=== PATIENT | female | born 1940 | race Caucasian/White ===

== ENCOUNTER 2024-04-19 13:50 | Inpatient (IN) | payer MEDICARE, OTHER ==
[~2024-04-19] VITALS: Ht 170.2 cm; Wt 105.7 kg
[2024-04-19] MEDS: IV NORMAL SALINE 1000 ML BAG IV ONE (14:15)
[2024-04-19] MEDS: PIPERACILLIN SODIUM/TAZOBACTAM 3.375 G in IV DEXTROSE 5% 50 ML IV ONE (14:15)
[2024-04-19 14:41] LABS: BASOPHILS % (AUTO) 0.3 % (0.0-2.0); EOSINOPHILS # (AUTO) 0.3 K/uL (0.0-0.7); EOSINOPHILS % (AUTO) 3.3 % (0.0-7.0); HEMATOCRIT 34.7 % (31.2-41.9); HEMOGLOBIN 11.3 g/dL (10.9-14.3); LYMPHOCYTES # (AUTO) 1.5 K/uL (0.8-4.8); LYMPHOCYTES % (AUTO) 14.9 % (20.5-51.5); MEAN CORPUSCULAR HEMOGLOBIN 29.7 uug (24.7-32.8); MEAN CORPUSCULAR HGB CONC 33 g/dL (32.3-35.6); MEAN CORPUSCULAR VOLUME 91.2 fL (75.5-95.3); MONOCYTES % (AUTO) 10.1 % (0.0-11.0); NEUTROPHILS # (AUTO) 7.1 K/uL (1.8-8.9); NEUTROPHILS % (AUTO) 71.4 % (38.5-71.5); PLATELET COUNT (AUTO) 229 K/uL (179-408); RED CELL DISTRIBUTION WIDTH 14.1 % (12.3-17.7)
[2024-04-19] MEDS: VANCOMYCIN IV 1,000 MG in IV DEXTROSE 5% 250 ML IV ONE (14:45)
[2024-04-19 14:46] LABS: DIFFERENTIAL COMMENT 1
[2024-04-19 14:49] LABS: CALCIUM 8.5 mg/dL (8.5-10.1); CARBON DIOXIDE 23 mmol/L (21-32); CHLORIDE 100 mmol/L (98-107); CREATININE 2.1 mg/dL (0.6-1.3); GLUCOSE 52 mg/dL (74-106); POTASSIUM 3.3 mmol/L (3.5-5.1); SODIUM SERUM 136 mmol/L (136-145); UREA NITROGEN, BLOOD 71 mg/dL (7-18)
[2024-04-19] MEDS ORDERED: FURO20TA4 PO (14:49)
[2024-04-19] MEDS ORDERED: SITA50TA PO (14:49)
[2024-04-19] MEDS ORDERED: LOSA50TA39 PO (14:49)
[2024-04-19] MEDS ORDERED: OMEG10006 PO (14:49)
[2024-04-19] MEDS ORDERED: PRAV10TA40 PO (14:49)
[2024-04-19] MEDS ORDERED: INSU100V37 SQ (14:49)
[2024-04-19] MEDS ORDERED: POLY30DR OP (14:49)
[2024-04-19] MEDS ORDERED: FLUT16SP BNOSTRILS (14:49)
[2024-04-19] MEDS ORDERED: DEXLANSOPRAZOLE PO (14:49)
[2024-04-19] MEDS ORDERED: CHOL10005 PO (14:49)
[2024-04-19] MEDS ORDERED: METO25TA6 PO (14:49)
[2024-04-19] MEDS ORDERED: SOLI5TAB2 PO (14:49)
[2024-04-19] MEDS ORDERED: INSU100C4 SQ (14:49)
[2024-04-19] MEDS ORDERED: GLIP5TAB13 PO (14:49)
[2024-04-19] MEDS ORDERED: GUAI400T61 PO (14:49)
[2024-04-19] MEDS ORDERED: ROPI0.255 PO (14:49)
[2024-04-19] MEDS ORDERED: MAGN250T10 PO (14:49)
[2024-04-19] MEDS ORDERED: ASPI81TA31 PO (14:49)
[2024-04-19 15:02] LABS: ALANINE AMINOTRANSFERASE 23 U/L (14-59); ALKALINE PHOSPHATASE 154 U/L (50-136); ASPARTATE AMINOTRANSFERASE 23 U/L (15-37); BILIRUBIN,DIRECT 0.2 mg/dL (0.0-0.2); BILIRUBIN,TOTAL 0.5 mg/dL (0.2-1.0); NT-PRO BNP 605 pg/mL (0-125); TOTAL PROTEIN, SERUM 7.1 g/dL (6.4-8.2)
[2024-04-19 15:06] LABS: LACTIC ACID 2.8 mmol/L (0.4-2.0)
[2024-04-19] MEDS ORDERED: VANCOMYCIN IV 200 ML ONE (15:38)
[2024-04-19] MEDS ORDERED: PIPERACILLIN SODIUM/TAZO 3.375 GM VIAL ONE (15:38)
[2024-04-19] MEDS ORDERED: HEPARIN/D5W DRIP 500 ML IV PRN (17:00)
[2024-04-19] MEDS: INSULIN GLARGINE,HUM 300 UNITS/3 ML CARTRIDGE SQ STA (18:25)
[2024-04-19] MEDS ORDERED: INSULIN GLARGINE,HUM 300 UNITS/3 ML CARTRIDGE SQ ONE (20:25)
[2024-04-19 22:20] VITALS: BP 104/38; TEMP 98; O2SAT 93
[2024-04-19] MEDS ORDERED: DEXTROSE 50% 50 ML DISP.SYRIN IV PRN (22:45)
[2024-04-19] MEDS ORDERED: ONDANSETRON 4 MG/2 ML VIAL IV PRN (22:45)
[2024-04-19] MEDS: BLOOD SUGAR DIAGNOSTIC 1 EACH STRIP VI SCH (22:45)
[2024-04-19] MEDS: IV LACTATED RINGERS SOLUTION 1,000 ML IV SCH (22:45)
[2024-04-20] MEDS: ENOXAPARIN SODIUM 40 MG/0.4 ML DISP.SYRIN SQ SCH (05:59)
[2024-04-20] MEDS ORDERED: IV LACTATED RINGERS SOLUTION 1,000 ML IV PRN (06:33)
[2024-04-20] MEDS: BLOOD SUGAR DIAGNOSTIC 1 EACH STRIP VI SCH (06:36)
[2024-04-20 06:45] LABS: BASOPHILS % (AUTO) 0.3 % (0.0-2.0); EOSINOPHILS # (AUTO) 0.4 K/uL (0.0-0.7); EOSINOPHILS % (AUTO) 5.3 % (0.0-7.0); HEMATOCRIT 33.5 % (31.2-41.9); HEMOGLOBIN 11.2 g/dL (10.9-14.3); LYMPHOCYTES # (AUTO) 1.8 K/uL (0.8-4.8); LYMPHOCYTES % (AUTO) 23.8 % (20.5-51.5); MEAN CORPUSCULAR HEMOGLOBIN 30.3 uug (24.7-32.8); MEAN CORPUSCULAR HGB CONC 33 g/dL (32.3-35.6); MEAN CORPUSCULAR VOLUME 90.8 fL (75.5-95.3); MONOCYTES # (AUTO) 0.7 K/uL (0.1-1.30); MONOCYTES % (AUTO) 8.8 % (0.0-11.0); NEUTROPHILS # (AUTO) 4.6 K/uL (1.8-8.9); NEUTROPHILS % (AUTO) 61.8 % (38.5-71.5); PLATELET COUNT (AUTO) 228 K/uL (179-408); RED BLOOD CELL COUNT(AUTO) 3.69 MIL/uL (3.63-4.92); RED CELL DISTRIBUTION WIDTH 14.3 % (12.3-17.7); WHITE BLOOD COUNT (AUTO) 7.4 K/uL (3.8-11.8)
[2024-04-20 06:52] LABS: DIFFERENTIAL COMMENT 1
[2024-04-20 07:03] VITALS: BP 112/45; TEMP 98.2; O2SAT 96
[2024-04-20 07:21] LABS: CARBON DIOXIDE 20 mmol/L (21-32); CHLORIDE 107 mmol/L (98-107); CREATININE 1.8 mg/dL (0.6-1.3); GLUCOSE 165 mg/dL (74-106); MAGNESIUM 2.2 mg/dL (1.8-2.4); POTASSIUM 4.1 mmol/L (3.5-5.1); SODIUM SERUM 137 mmol/L (136-145); UREA NITROGEN, BLOOD 65 mg/dL (7-18)
[2024-04-20 07:33] VITALS: BP 111/38; TEMP 98.2; O2SAT 94
[2024-04-20] MEDS: INSULIN REGULAR, HUMAN 1000 UNIT/10 ML VIAL SQ PRN (07:46)
[2024-04-20 07:52] LABS: CALCIUM 8.4 mg/dL (8.5-10.1)
[2024-04-20] MEDS: PANTOPRAZOLE SODIUM 40 MG VIAL IV SCH (08:25)
[2024-04-20] MEDS: VANCOMYCIN IV 1,250 MG in IV DEXTROSE 5% 250 ML IV ONE (09:10)
[2024-04-20] MEDS: CEFEPIME HCL 1 G in IV DEXTROSE 5% 50 ML IV SCH (09:10)
[2024-04-20] MEDS ORDERED: HYDR12.55 PO (09:35)
[2024-04-20] MEDS ORDERED: FURO40TA5 PO (09:35)
[2024-04-20] MEDS ORDERED: ROPI0.5T4 PO (09:35)
[2024-04-20] MEDS ORDERED: PRAV80TA21 PO (09:35)
[2024-04-20] MEDS ORDERED: METO-356 PO (09:35)
[2024-04-20] MEDS ORDERED: GLIP-19 PO (09:35)
[2024-04-20] MEDS ORDERED: MAGN400C PO (09:35)
[2024-04-20] MEDS ORDERED: DEXL60CA3 PO (09:35)
[2024-04-20] MEDS ORDERED: CHOL-35 PO (09:35)
[2024-04-20] MEDS ORDERED: INSU10VI3 SQ (09:39)
[2024-04-20] MEDS: PERMETHRIN 5% CREAM 60 GM TUBE TP ONE (10:14)
[2024-04-20] MEDS ORDERED: HOME MED MISCELLANEOUS XX SCH ×7 (10:45)
[2024-04-20 11:24] VITALS: BP 126/51; TEMP 97.7; O2SAT 95
[2024-04-20] MEDS: POLYVINYL ALCOHOL OPHT DROPS 15 ML BOTTLE EACHEYE SCH (11:32)
[2024-04-20] MEDS: FLUTICASONE PROP NASAL SPRAY 16 GM BOTTLE NS SCH (11:33)
[2024-04-20] MEDS: ASPIRIN 81 MG TAB.CHEW PO SCH (11:34)
[2024-04-20] MEDS: FUROSEMIDE 40 MG TABLET PO SCH (11:34)
[2024-04-20] MEDS: CHOLECALCIFEROL 1,000 UNIT TABLET PO SCH (11:34)
[2024-04-20 15:52] VITALS: BP 116/42; TEMP 98; O2SAT 96
[2024-04-20] MEDS: OMEGA-3 FATTY ACIDS/FISH OIL CAPSULE PO SCH (16:22)
[2024-04-20] MEDS: glipiZIDE XL 5 MG TABCR PO SCH (16:23)
[2024-04-20] MEDS: METOPROLOL SUCCINATE XL 25 MG TAB.SR.24H PO SCH (16:23)
[2024-04-20] MEDS: OXYBUTYNIN CHLORIDE 5 MG TABLET PO SCH (16:23)
[2024-04-20 20:00] VITALS: BP 139/50; TEMP 98; O2SAT 95
[2024-04-20] MEDS: ATORVASTATIN 20 MG TABLET PO SCH (20:22)
[2024-04-20] MEDS: GUAIFENESIN LA 600 MG TABLET.SA PO SCH (20:22)
[2024-04-20] MEDS: INSULIN GLARGINE,HUM 300 UNITS/3 ML CARTRIDGE SQ SCH (20:26)
[2024-04-21] VITALS: BP 117/38; TEMP 98.8; O2SAT 95
[2024-04-21 04:00] VITALS: BP 121/38; TEMP 98.8; O2SAT 95
[2024-04-21] MEDS: PANTOPRAZOLE SODIUM 40 MG TABLET.DR PO SCH (06:31)
[2024-04-21 06:42] LABS: BASOPHILS % (AUTO) 0.6 % (0.0-2.0); EOSINOPHILS # (AUTO) 0.4 K/uL (0.0-0.7); EOSINOPHILS % (AUTO) 6.1 % (0.0-7.0); HEMATOCRIT 33.1 % (31.2-41.9); HEMOGLOBIN 10.8 g/dL (10.9-14.3); LYMPHOCYTES % (AUTO) 28.9 % (20.5-51.5); MEAN CORPUSCULAR HGB CONC 33 g/dL (32.3-35.6); MEAN CORPUSCULAR VOLUME 91.6 fL (75.5-95.3); MONOCYTES # (AUTO) 0.7 K/uL (0.1-1.30); MONOCYTES % (AUTO) 10.9 % (0.0-11.0); NEUTROPHILS # (AUTO) 3.7 K/uL (1.8-8.9); NEUTROPHILS % (AUTO) 53.5 % (38.5-71.5); PLATELET COUNT (AUTO) 205 K/uL (179-408); RED BLOOD CELL COUNT(AUTO) 3.62 MIL/uL (3.63-4.92); WHITE BLOOD COUNT (AUTO) 6.9 K/uL (3.8-11.8)
[2024-04-21 07:05] LABS: CALCIUM 8.7 mg/dL (8.5-10.1); CARBON DIOXIDE 22 mmol/L (21-32); CHLORIDE 109 mmol/L (98-107); CREATININE 1.9 mg/dL (0.6-1.3); GLUCOSE 126 mg/dL (74-106); POTASSIUM 4.2 mmol/L (3.5-5.1); SODIUM SERUM 141 mmol/L (136-145); UREA NITROGEN, BLOOD 63 mg/dL (7-18)
[2024-04-21] MEDS ORDERED: INSULN ASP PRT/INSULIN ASPART 70/30 1000 UNITS/10 ML VIAL SQ SCH (07:30)
[2024-04-21 07:50] LABS: DIFFERENTIAL COMMENT 1
[2024-04-21 07:58] VITALS: BP 144/54; TEMP 98.6; O2SAT 99
[2024-04-21] MEDS: HUM INSULIN NPH/REG INSULIN HM 70/30 1000 UNITS/10 ML VIAL SQ SCH (08:52)
[2024-04-21] MEDS: ropiniROLE 0.5 MG TABLET PO SCH (08:52)
[2024-04-21] MEDS: MAGNESIUM OXIDE 400 MG TABLET PO SCH (08:53)
[2024-04-21] MEDS: HYDROCHLOROTHIAZIDE 12.5 MG CAPSULE PO SCH (08:53)
[2024-04-21] MEDS ORDERED: SOLIFENACIN SUCCINATE 5 MG TABEC PO SCH (09:00)
[2024-04-21] MEDS: VANCOMYCIN IV 1,250 MG in IV DEXTROSE 5% 250 ML IV ONE (13:38)
[2024-04-21 14:05] LABS: *BILIRUBIN,URIN NEGATIVE (NEGATIVE); *BLOOD, URINE TRACE (NEGATIVE); *CLARITY,URINE CLEAR (CLEAR); *COLOR,URINE YELLOW (YELLOW); *KETONES,URINE NEGATIVE (NEGATIVE); *PROTEIN,URINE NEGATIVE (NEGATIVE); *UROBILINOGEN,URINE 0.2 E.U./dl (NORMAL); LEUKOCYTE ESTERASE ,URINE NEGATIVE (NEGATIVE); NITRITE, URINE NEGATIVE (NEGATIVE); UGLUCOSE NEGATIVE (NEGATIVE)
[2024-04-21 14:06] LABS: BACTERIA,URINE FEW /HPF (NONE SEEN); SQUAMOUS EPITHELIAL CELL,UR FEW /HPF (NONE SEEN); WBC,URINE 0-3 /HPF (0-3)
[2024-04-21 14:18] LABS: *CREATININE,URINE 62.1 mg/dL (30-125); *URINE TOTAL PROTEIN RANDOM 12.5 mg/dL (<150/24HR)
[2024-04-21 16:15] VITALS: BP 144/58; TEMP 98; O2SAT 97
[2024-04-21] MEDS: CLOTRIMAZOLE/BETAMET DIPROP CREAM 15 GM TUBE TOP SCH (17:43)
[2024-04-21] MEDS: MUPIROCIN 2% OINT 22 GM TUBE TP SCH (17:47)
[2024-04-21 19:00] VITALS: BP 149/54; TEMP 97.7; O2SAT 95
[2024-04-21] MEDS: ACETAMINOPHEN 325 MG TABLET PO PRN (21:12)
[2024-04-22 06:00] VITALS: BP 148/51; TEMP 98; O2SAT 95
[2024-04-22 06:51] LABS: BASOPHILS % (AUTO) 0.4 % (0.0-2.0); EOSINOPHILS # (AUTO) 0.5 K/uL (0.0-0.7); EOSINOPHILS % (AUTO) 7.5 % (0.0-7.0); HEMATOCRIT 30.7 % (31.2-41.9); HEMOGLOBIN 10.4 g/dL (10.9-14.3); LYMPHOCYTES # (AUTO) 1.8 K/uL (0.8-4.8); LYMPHOCYTES % (AUTO) 28.7 % (20.5-51.5); MEAN CORPUSCULAR HEMOGLOBIN 30.6 uug (24.7-32.8); MEAN CORPUSCULAR HGB CONC 34 g/dL (32.3-35.6); MEAN CORPUSCULAR VOLUME 90.5 fL (75.5-95.3); MONOCYTES # (AUTO) 0.8 K/uL (0.1-1.30); MONOCYTES % (AUTO) 12.2 % (0.0-11.0); NEUTROPHILS # (AUTO) 3.2 K/uL (1.8-8.9); NEUTROPHILS % (AUTO) 51.2 % (38.5-71.5); PLATELET COUNT (AUTO) 202 K/uL (179-408); RED BLOOD CELL COUNT(AUTO) 3.39 MIL/uL (3.63-4.92); RED CELL DISTRIBUTION WIDTH 13.9 % (12.3-17.7); WHITE BLOOD COUNT (AUTO) 6.2 K/uL (3.8-11.8)
[2024-04-22 07:06] LABS: DIFFERENTIAL COMMENT 1
[2024-04-22 07:14] LABS: ALANINE AMINOTRANSFERASE 44 U/L (14-59); ALBUMIN 2.3 g/dL (3.4-5.0); ALKALINE PHOSPHATASE 194 U/L (50-136); ASPARTATE AMINOTRANSFERASE 62 U/L (15-37); BILIRUBIN,TOTAL 0.5 mg/dL (0.2-1.0); CALCIUM 8.9 mg/dL (8.5-10.1); CARBON DIOXIDE 24 mmol/L (21-32); CHLORIDE 107 mmol/L (98-107); CREATINE KINASE, TOTAL 141 U/L (26-192); CREATININE 1.8 mg/dL (0.6-1.3); GLUCOSE 125 mg/dL (74-106); MAGNESIUM 1.7 mg/dL (1.8-2.4); PHOSPHOROUS 3.6 mg/dL (2.5-4.9); POTASSIUM 3.6 mmol/L (3.5-5.1); SODIUM SERUM 139 mmol/L (136-145); TOTAL PROTEIN, SERUM 6.2 g/dL (6.4-8.2); UREA NITROGEN, BLOOD 62 mg/dL (7-18); VANCOMYCIN,RANDOM 13.6 ug/mL (20.0-30.0)
[2024-04-22] MEDS ORDERED: ENOXAPARIN SODIUM 30 MG/0.3 ML DISP.SYRIN SUBCUT SCH (09:00)
[2024-04-22] MEDS: ENOXAPARIN SODIUM 40 MG/0.4 ML DISP.SYRIN SQ SCH (09:24)
[2024-04-22] MEDS: CEFEPIME HCL 2 GM in IV DEXTROSE 5% 100 ML IV SCH (10:05)
[2024-04-22] MEDS: MAGNESIUM OXIDE 400 MG TABLET PO ONE (10:37)
[2024-04-22] MEDS: VANCOMYCIN IV 1,250 MG in IV DEXTROSE 5% 250 ML IV ONE (11:02)
[2024-04-22] MEDS ORDERED: CEPH500T PO (11:07)
[2024-04-22 11:34] VITALS: BP 111/34; TEMP 97.4; O2SAT 96
[2024-04-22 15:46] VITALS: BP 120/34; TEMP 98.2; O2SAT 100
[2024-04-22 17:08] VITALS: BP 120/54
[2024-04-22] MEDS ORDERED: CLIN300C12 PO (19:06)
[2024-04-23 06:07] LABS: PTH, INTACT 20 pg/mL (15-65)
[2024-04-23 13:10] LABS: A/G RATIO 0.9 (0.7-1.7); ALBUMIN 2.5 g/dL (2.9-4.4); ALPHA-1-GLOBULIN 0.3 g/dL (0.0-0.4); ALPHA-2-GLOBULIN 0.8 g/dL (0.4-1.0); BETA GLOBULIN 1.1 g/dL (0.7-1.3); GAMMA GLOBULIN 0.7 g/dL (0.4-1.8); GLOBULIN, TOTAL 2.9 g/dL (2.2-3.9); M-SPIKE Not Observed g/dL (Not Observed)
== END 2024-04-22 19:28 | disposition home health service (06) | DRG 602 ==
LOC: ER 13:54 → TELE3 20:40 → MEDSURG3 04-21 10:00
PROVIDERS: ADMIT Nurse Practitioner Acute Care; ATTEND Nurse Practitioner Acute Care
PROC: 05HB33Z Insertion of Infusion Device into Right Basilic Vein, Percutaneous Approach (ICD-10-PCS; principal; 2024-04-20)
DX: L03.116 Cellulitis of left lower limb (principal); N17.0 Acute kidney failure with tubular necrosis; I13.0 Hypertensive heart and chronic kidney disease with heart failure and stage 1 through stage 4 chronic kidney disease, or unspecified chronic kidney disease; I50.32 Chronic diastolic (congestive) heart failure; E87.20 Acidosis, unspecified; E11.22 Type 2 diabetes mellitus with diabetic chronic kidney disease; N18.9 Chronic kidney disease, unspecified; N28.1 Cyst of kidney, acquired; E78.5 Hyperlipidemia, unspecified; H40.9 Unspecified glaucoma; R79.1 Abnormal coagulation profile; L30.9 Dermatitis, unspecified; D64.9 Anemia, unspecified; M89.8X9 Other specified disorders of bone, unspecified site; N32.81 Overactive bladder; E66.01 Morbid (severe) obesity due to excess calories; E11.40 Type 2 diabetes mellitus with diabetic neuropathy, unspecified; S80.812A Abrasion, left lower leg, initial encounter; X58.XXXA Exposure to other specified factors, initial encounter; Y92.89 Other specified places as the place of occurrence of the external cause; Z68.36 Body mass index [BMI] 36.0-36.9, adult; Z96.642 Presence of left artificial hip joint; Z79.4 Long term (current) use of insulin; Z79.84 Long term (current) use of oral hypoglycemic drugs; Z79.82 Long term (current) use of aspirin
CPT/HCPCS: 36415; 71045; 76770; 83605; 83735; 83970; 84100; 84155; 84165; 84300; 84484; 85025; 85730; 87040; 93005; 93307; A4606; A4663; G0378; J0692; J1650; J1815; J2470; J2543; J3370; J3535; J7040; J7050; J7120; J8499

== ENCOUNTER 2024-08-06 18:50 | Inpatient (IN) | payer MEDICARE, OTHER ==
[~2024-08-06] VITALS: Ht 165.1 cm; Wt 104.4 kg
[~2024-08-06 18:50] MED LIST: ASPI81TA31 PO; CHOL-35 PO; CLIN300C12 PO; DEXL60CA3 PO; FLUT16SP BNOSTRILS; FURO40TA5 PO; GLIP-19 PO; GUAI400T61 PO; HYDR12.55 PO; INSU100V37 SQ; INSU10VI3 SQ; LOSA50TA39 PO; MAGN400C PO; METO-356 PO; OMEG10006 PO; POLY30DR OP; PRAV80TA21 PO; ROPI0.5T4 PO; SITA50TA PO; SOLI5TAB2 PO
[2024-08-06] MEDS ORDERED: diphenhydrAMINE 50 MG/1 ML VIAL ONE ×2 (19:14→21:21)
[2024-08-06] MEDS ORDERED: methylPREDNISolone SOD SUCC 125 MG/2 ML VIAL IV ONE (19:15)
[2024-08-06] MEDS: diphenhydrAMINE 50 MG/1 ML VIAL IM ONE (19:18)
[2024-08-06 19:35] LABS: BASOPHILS % (AUTO) 0.1 % (0.0-2.0); EOSINOPHILS # (AUTO) 2.7 K/uL (0.0-0.7); EOSINOPHILS % (AUTO) 21.3 % (0.0-7.0); HEMATOCRIT 40.6 % (31.2-41.9); HEMOGLOBIN 13.4 g/dL (10.9-14.3); LYMPHOCYTES # (AUTO) 1.3 K/uL (0.8-4.8); LYMPHOCYTES % (AUTO) 10.8 % (20.5-51.5); MEAN CORPUSCULAR HEMOGLOBIN 29.1 uug (24.7-32.8); MEAN CORPUSCULAR HGB CONC 33 g/dL (32.3-35.6); MONOCYTES # (AUTO) 0.6 K/uL (0.1-1.30); MONOCYTES % (AUTO) 5.1 % (0.0-11.0); NEUTROPHILS # (AUTO) 7.8 K/uL (1.8-8.9); NEUTROPHILS % (AUTO) 62.7 % (38.5-71.5); PLATELET COUNT (AUTO) 218 K/uL (179-408); RED BLOOD CELL COUNT(AUTO) 4.61 MIL/uL (3.63-4.92); RED CELL DISTRIBUTION WIDTH 14.2 % (12.3-17.7); WHITE BLOOD COUNT (AUTO) 12.5 K/uL (3.8-11.8)
[2024-08-06 19:42] LABS: CALCIUM 8.2 mg/dL (8.5-10.1); CARBON DIOXIDE 25 mmol/L (21-32); CHLORIDE 91 mmol/L (98-107); CREATININE 2.1 mg/dL (0.6-1.3); GLUCOSE 400 mg/dL (74-106); SODIUM SERUM 126 mmol/L (136-145); UREA NITROGEN, BLOOD 54 mg/dL (7-18)
[2024-08-06 19:45] LABS: POTASSIUM 4.7 mmol/L (3.5-5.1)
[2024-08-06 19:46] LABS: DIFFERENTIAL COMMENT 1
[2024-08-06 19:55] LABS: ALANINE AMINOTRANSFERASE 17 U/L (14-59); ALBUMIN 2.5 g/dL (3.4-5.0); ALKALINE PHOSPHATASE 109 U/L (50-136); ASPARTATE AMINOTRANSFERASE 20 U/L (15-37); BILIRUBIN,DIRECT 0.2 mg/dL (0.0-0.2); BILIRUBIN,TOTAL 0.7 mg/dL (0.2-1.0); NT-PRO BNP 2176 pg/mL (0-125); TOTAL PROTEIN, SERUM 6.2 g/dL (6.4-8.2)
[2024-08-06] MEDS ORDERED: INSULIN REGULAR, HUMAN 1000 UNIT/10 ML VIAL SQ ONE (21:00)
[2024-08-06] MEDS ORDERED: DEXAMETHASONE SOD PHOSPHATE 4 MG INJ IM ONE (21:00)
[2024-08-06] MEDS ORDERED: methylPREDNISolone SOD SUCC 125 MG/2 ML VIAL ONE (21:21)
[2024-08-06] MEDS ORDERED: HYDROCORTISONE SOD SUCCINATE 100 MG/2 ML VIAL IV ONE (21:21)
[2024-08-06] MEDS: methylPREDNISolone SOD SUCC 125 MG/2 ML VIAL IV ONE (21:22)
[2024-08-06] MEDS: IV NORMAL SALINE 500 ML BAG IV ONE (21:22)
[2024-08-06] MEDS: diphenhydrAMINE 50 MG/1 ML VIAL IV ONE (21:22)
[2024-08-06] MEDS: HYDROCORTISONE SOD SUCCINATE 100 MG/2 ML VIAL IV ONE (21:22)
[2024-08-06] MEDS ORDERED: INSULIN NPH 1,000 UNITS/10 ML VIAL SQ ONE (21:22)
[2024-08-06] MEDS: INSULIN REGULAR, HUMAN 1000 UNIT/10 ML VIAL IV ONE (21:41)
[2024-08-06] MEDS ORDERED: POTASSIUM CHLORIDE 20 MEQ TAB.PRT.SR ONE ×2 (21:42→21:43)
[2024-08-06] MEDS: POTASSIUM CHLORIDE 20 MEQ TAB.PRT.SR PO ONE (21:44)
[2024-08-06] MEDS ORDERED: REMEDY ESSENTIAL ZINC PASTE 113 GM TP PRN (22:45)
[2024-08-06] MEDS ORDERED: ONDANSETRON 4 MG/2 ML VIAL IV PRN (22:45)
[2024-08-06] MEDS ORDERED: DEXTROSE 50% 50 ML DISP.SYRIN IV PRN (22:45)
[2024-08-06] MEDS: ENOXAPARIN SODIUM 100 MG/ML DISP.SYRIN SQ ONE (23:00)
[2024-08-06] MEDS ORDERED: ENOXAPARIN SODIUM 100 MG/ML DISP.SYRIN SQ ONE (23:16)
[2024-08-06] MEDS ORDERED: LORAZEPAM 2 MG/1 ML VIAL ONE (23:16)
[2024-08-06] MEDS: LORAZEPAM 2 MG/1 ML VIAL IV ONE (23:18)
[2024-08-06] MEDS: ENOXAPARIN SODIUM 100 MG/ML DISP.SYRIN SQ SCH (23:18)
[2024-08-06] MEDS ORDERED: LORAZEPAM 2 MG/1 ML VIAL IM PRN (23:30)
[2024-08-06 23:45] VITALS: BP 113/90; TEMP 97.4; O2SAT 96
[2024-08-07] VITALS (7 sets, daily range): BP systolic 105–143; BP diastolic 50–124; TEMP 98.6; O2SAT 93–99
[2024-08-07 05:15] LABS: EOSINOPHILS # (AUTO) 0.2 K/uL (0.0-0.7); EOSINOPHILS % (AUTO) 2.2 % (0.0-7.0); HEMATOCRIT 38.9 % (31.2-41.9); LYMPHOCYTES # (AUTO) 0.9 K/uL (0.8-4.8); LYMPHOCYTES % (AUTO) 8.5 % (20.5-51.5); MEAN CORPUSCULAR HEMOGLOBIN 29.4 uug (24.7-32.8); MEAN CORPUSCULAR HGB CONC 33 g/dL (32.3-35.6); MEAN CORPUSCULAR VOLUME 88.2 fL (75.5-95.3); MONOCYTES # (AUTO) 0.1 K/uL (0.1-1.30); MONOCYTES % (AUTO) 1.1 % (0.0-11.0); NEUTROPHILS # (AUTO) 8.9 K/uL (1.8-8.9); NEUTROPHILS % (AUTO) 88.2 % (38.5-71.5); PLATELET COUNT (AUTO) 221 K/uL (179-408); RED BLOOD CELL COUNT(AUTO) 4.42 MIL/uL (3.63-4.92); RED CELL DISTRIBUTION WIDTH 14.1 % (12.3-17.7); WHITE BLOOD COUNT (AUTO) 10.1 K/uL (3.8-11.8)
[2024-08-07 05:31] LABS: DIFFERENTIAL COMMENT 1
[2024-08-07 05:42] LABS: CALCIUM 7.9 mg/dL (8.5-10.1); CARBON DIOXIDE 22 mmol/L (21-32); CHLORIDE 94 mmol/L (98-107); CREATININE 1.9 mg/dL (0.6-1.3); GLUCOSE 357 mg/dL (74-106); MAGNESIUM 2.1 mg/dL (1.8-2.4); NT-PRO BNP 1909 pg/mL (0-125); PHOSPHOROUS 3.5 mg/dL (2.5-4.9); POTASSIUM 5.6 mmol/L (3.5-5.1); SODIUM SERUM 127 mmol/L (136-145); UREA NITROGEN, BLOOD 54 mg/dL (7-18)
[2024-08-07] MEDS: PANTOPRAZOLE SODIUM 40 MG TABLET.DR PO SCH (08:14)
[2024-08-07] MEDS: BLOOD SUGAR DIAGNOSTIC 1 EACH STRIP VI SCH ×2 (08:15→12:51)
[2024-08-07] MEDS: INSULIN REGULAR, HUMAN 1000 UNIT/10 ML VIAL SQ PRN ×2 (08:25→12:53)
[2024-08-07] MEDS ORDERED: ENOXAPARIN SODIUM 100 MG/ML DISP.SYRIN SQ SCH ×3 (09:00→21:00)
[2024-08-07] MEDS ORDERED: POLYVINYL ALCOHOL OP SCH (09:15)
[2024-08-07] MEDS ORDERED: POVIDONE OP SCH (09:15)
[2024-08-07] MEDS ORDERED: DEXTROSE 50% 50 ML DISP.SYRIN IV PRN (09:15)
[2024-08-07] MEDS: FAMOTIDINE. 20 MG/2 ML VIAL IV SCH (09:39)
[2024-08-07] MEDS: SODIUM POLYSTYRENE SULFONATE 15 G/60 ML LIQUID UDC PO ONE (09:39)
[2024-08-07] MEDS: ASPIRIN 81 MG TAB.CHEW PO SCH (09:40)
[2024-08-07] MEDS ORDERED: APIX2.5T PO (13:58)
[2024-08-07] MEDS ORDERED: FURO20TA4 PO (13:58)
[2024-08-07] MEDS ORDERED: ACET325T53 PO (14:20)
[2024-08-07] MEDS ORDERED: SAXA5TAB PO (14:20)
[2024-08-07] MEDS ORDERED: BENZ200C53 PO (14:20)
[2024-08-07] MEDS ORDERED: INSU100V7 SQ (14:20)
[2024-08-07] MEDS ORDERED: LORA-972 PO (14:20)
[2024-08-07] MEDS ORDERED: AMIN30LI2 PO (14:20)
[2024-08-07] MEDS ORDERED: NA P133E RC (14:20)
[2024-08-07] MEDS ORDERED: INSU100V SQ (14:20)
[2024-08-07] MEDS ORDERED: SPIR25TA6 PO (14:20)
[2024-08-07] MEDS ORDERED: MELA5TAB PO (14:20)
[2024-08-07] MEDS ORDERED: ACET-73 PO (14:20)
[2024-08-07] MEDS ORDERED: ROSU5TAB PO (14:20)
[2024-08-07] MEDS ORDERED: ASCO500T85 PO (14:20)
[2024-08-07] MEDS ORDERED: CARV6.252 PO (14:20)
[2024-08-07] MEDS ORDERED: BISA10SU61 RC (14:20)
[2024-08-07] MEDS ORDERED: IPRA0.2S48 NEB (14:20)
[2024-08-07] MEDS ORDERED: LIDO30AD10 TD (14:20)
[2024-08-07] MEDS ORDERED: SENN8.6T19 PO (14:20)
[2024-08-07] MEDS ORDERED: MULT-1045 PO (14:20)
[2024-08-07] MEDS ORDERED: OXYB5TAB29 PO (14:20)
[2024-08-07] MEDS ORDERED: FERR-68 PO (14:20)
[2024-08-07] MEDS ORDERED: MAGN400O6 PO (14:20)
[2024-08-07] MEDS ORDERED: ZINC50TA69 PO (14:20)
[2024-08-07] MEDS ORDERED: ALBU2.5V13 NEB (14:20)
[2024-08-07] MEDS ORDERED: [UNRECOGNIZED DRUG - CODE] TP (14:20)
[2024-08-07] MEDS: LORAZEPAM 0.5 MG TABLET PO PRN (17:06)
[2024-08-07] MEDS ORDERED: BISACODYL 10 MG SUPP.RECT RC PRN (20:45)
[2024-08-07] MEDS ORDERED: Medication Not On Formulary EA (Melatonin 10 MG) PO PRN (20:45)
[2024-08-07] MEDS ORDERED: INSULIN GLARGINE,HUM 300 UNITS/3 ML CARTRIDGE SQ ONE (20:58)
[2024-08-07] MEDS ORDERED: METOPROLOL SUCCINATE XL 25 MG TAB.SR.24H PO SCH (21:00)
[2024-08-07] MEDS: INSULIN GLARGINE,HUM 300 UNITS/3 ML CARTRIDGE SQ SCH (21:06)
[2024-08-07 21:09] LABS: CALCIUM 8.2 mg/dL (8.5-10.1); CARBON DIOXIDE 23 mmol/L (21-32); CHLORIDE 93 mmol/L (98-107); CREATININE 2.1 mg/dL (0.6-1.3); MAGNESIUM 2.1 mg/dL (1.8-2.4); PHOSPHOROUS 3.4 mg/dL (2.5-4.9); POTASSIUM 4.9 mmol/L (3.5-5.1); SODIUM SERUM 127 mmol/L (136-145); UREA NITROGEN, BLOOD 55 mg/dL (7-18); URIC ACID 10.1 mg/dL (2.6-6.0)
[2024-08-07 21:14] LABS: THYROID STIMULATING HORMONE 0.728 mIU/mL (0.358-3.740)
[2024-08-07 21:16] LABS: GLUCOSE 490 mg/dL (74-106)
[2024-08-07] MEDS: diphenhydrAMINE 50 MG/1 ML VIAL IV PRN (23:11)
[2024-08-07] MEDS: ACETAMINOPHEN 325 MG TABLET PO PRN (23:38)
[2024-08-08] VITALS: BP 121/47; O2SAT 98
[2024-08-08] MEDS: MELATONIN 3 MG TABLET PO SCH (02:20)
[2024-08-08] MEDS: MELATONIN 3 MG TABLET ONE (03:12)
[2024-08-08 03:25] VITALS: BP 138/64; TEMP 97.6; O2SAT 94
[2024-08-08 05:21] LABS: EOSINOPHILS # (AUTO) 0.4 K/uL (0.0-0.7); EOSINOPHILS % (AUTO) 3.3 % (0.0-7.0); HEMATOCRIT 34.7 % (31.2-41.9); HEMOGLOBIN 11.6 g/dL (10.9-14.3); LYMPHOCYTES # (AUTO) 1.1 K/uL (0.8-4.8); LYMPHOCYTES % (AUTO) 8.8 % (20.5-51.5); MEAN CORPUSCULAR HEMOGLOBIN 29.1 uug (24.7-32.8); MEAN CORPUSCULAR HGB CONC 34 g/dL (32.3-35.6); MEAN CORPUSCULAR VOLUME 86.8 fL (75.5-95.3); MONOCYTES # (AUTO) 0.6 K/uL (0.1-1.30); MONOCYTES % (AUTO) 4.9 % (0.0-11.0); NEUTROPHILS # (AUTO) 10.2 K/uL (1.8-8.9); PLATELET COUNT (AUTO) 225 K/uL (179-408); RED CELL DISTRIBUTION WIDTH 14.6 % (12.3-17.7); WHITE BLOOD COUNT (AUTO) 12.2 K/uL (3.8-11.8)
[2024-08-08 05:33] LABS: *BILIRUBIN,URIN NEGATIVE (NEGATIVE); *CLARITY,URINE CLEAR (CLEAR); *COLOR,URINE YELLOW (YELLOW); *KETONES,URINE NEGATIVE (NEGATIVE); *PROTEIN,URINE 1+ (NEGATIVE); *UROBILINOGEN,URINE 0.2 E.U./dl (NORMAL); LEUKOCYTE ESTERASE ,URINE NEGATIVE (NEGATIVE); NITRITE, URINE NEGATIVE (NEGATIVE); PH,URINE 5.5 (5.0-8.0)
[2024-08-08 05:39] LABS: *BLOOD, URINE TRACE (NEGATIVE); UGLUCOSE 3+ (NEGATIVE)
[2024-08-08 05:41] LABS: DIFFERENTIAL COMMENT 1
[2024-08-08 06:06] LABS: BACTERIA,URINE FEW /HPF (NONE SEEN); SQUAMOUS EPITHELIAL CELL,UR MODERATE /HPF (NONE SEEN); WBC,URINE 0-3 /HPF (0-3)
[2024-08-08 06:23] LABS: ALANINE AMINOTRANSFERASE 19 U/L (14-59); ALBUMIN 2.6 g/dL (3.4-5.0); ALKALINE PHOSPHATASE 111 U/L (50-136); ASPARTATE AMINOTRANSFERASE 16 U/L (15-37); BILIRUBIN,TOTAL 0.5 mg/dL (0.2-1.0); CALCIUM 8.2 mg/dL (8.5-10.1); CARBON DIOXIDE 26 mmol/L (21-32); CHLORIDE 98 mmol/L (98-107); CREATINE KINASE, TOTAL 79 U/L (26-192); CREATININE 1.8 mg/dL (0.6-1.3); GLUCOSE 261 mg/dL (74-106); MAGNESIUM 2.2 mg/dL (1.8-2.4); PHOSPHOROUS 3.7 mg/dL (2.5-4.9); POTASSIUM 4.9 mmol/L (3.5-5.1); SODIUM SERUM 135 mmol/L (136-145); UREA NITROGEN, BLOOD 56 mg/dL (7-18)
[2024-08-08 06:32] LABS: *CREATININE,URINE 52.1 mg/dL (30-125); *URINE TOTAL PROTEIN RANDOM 37.9 mg/dL (<150/24HR)
[2024-08-08] MEDS: CARVEDILOL 6.25 MG TABLET PO SCH (08:20)
[2024-08-08] MEDS: LORATADINE 10 MG TABLET PO SCH (08:20)
[2024-08-08] MEDS: APIXABAN 2.5 MG TABLET PO SCH (08:22)
[2024-08-08] MEDS: OXYBUTYNIN XL 5 MG TABSR PO SCH (08:41)
[2024-08-08] MEDS ORDERED: SOLIFENACIN SUCCINATE 5 MG TABEC PO SCH (09:00)
[2024-08-08 20:00] VITALS: BP 115/58; TEMP 97.3; O2SAT 97
[2024-08-08] MEDS: INSULIN REGULAR, HUMAN 300 UNITS/3 ML VIAL SQ PRN (21:56)
[2024-08-08 22:00] VITALS: BP 125/93; O2SAT 98
[2024-08-09] VITALS (8 sets, daily range): BP systolic 110–152; BP diastolic 44–98; TEMP 97.5–98.1; O2SAT 96–99
[2024-08-09 07:50] LABS: BASOPHILS % (AUTO) 0.3 % (0.0-2.0); HEMATOCRIT 37.9 % (31.2-41.9); HEMOGLOBIN 12.9 g/dL (10.9-14.3); LYMPHOCYTES # (AUTO) 1.5 K/uL (0.8-4.8); LYMPHOCYTES % (AUTO) 9.1 % (20.5-51.5); MEAN CORPUSCULAR HGB CONC 34 g/dL (32.3-35.6); MEAN CORPUSCULAR VOLUME 88.2 fL (75.5-95.3); MONOCYTES # (AUTO) 0.9 K/uL (0.1-1.30); MONOCYTES % (AUTO) 5.5 % (0.0-11.0); NEUTROPHILS # (AUTO) 8.3 K/uL (1.8-8.9); NEUTROPHILS % (AUTO) 49.3 % (38.5-71.5); PLATELET COUNT (AUTO) 249 K/uL (179-408); RED CELL DISTRIBUTION WIDTH 14.5 % (12.3-17.7); WHITE BLOOD COUNT (AUTO) 16.9 K/uL (3.8-11.8)
[2024-08-09 08:02] LABS: DIFFERENTIAL COMMENT 1; EOSINOPHILS % (AUTO) 35.8 % (0.0-7.0)
[2024-08-09 08:46] LABS: ALANINE AMINOTRANSFERASE 28 U/L (14-59); ALBUMIN 2.4 g/dL (3.4-5.0); ALKALINE PHOSPHATASE 118 U/L (50-136); ASPARTATE AMINOTRANSFERASE 23 U/L (15-37); BILIRUBIN,TOTAL 0.5 mg/dL (0.2-1.0); CALCIUM 8.2 mg/dL (8.5-10.1); CARBON DIOXIDE 24 mmol/L (21-32); CHLORIDE 100 mmol/L (98-107); CREATININE 1.8 mg/dL (0.6-1.3); GLUCOSE 271 mg/dL (74-106); MAGNESIUM 2.1 mg/dL (1.8-2.4); PHOSPHOROUS 3.4 mg/dL (2.5-4.9); POTASSIUM 4.2 mmol/L (3.5-5.1); SODIUM SERUM 135 mmol/L (136-145); UREA NITROGEN, BLOOD 53 mg/dL (7-18)
[2024-08-09 10:38] LABS: EOSINOPHILS % (MANUAL) 31 % (0-8); LYMPHOCYTES % (MANUAL) 7 % (20-40); MONOCYTES % (MANUAL) 4 % (2-10); NEUTROPHILS % (MANUAL) 58 % (42-75); PLATELET ESTIMATE ADEQUATE
[2024-08-09 10:39] LABS: ANISOCYTOSIS 1+
[2024-08-09 11:06] LABS: PTH, INTACT 38 pg/mL (15-65)
[2024-08-09] MEDS: INSULIN GLARGINE,HUM 300 UNITS/3 ML CARTRIDGE SQ SCH (21:32)
[2024-08-10 00:43] VITALS: BP 139/58; O2SAT 94
[2024-08-10 05:16] VITALS: BP 118/52; TEMP 99.7; O2SAT 95
[2024-08-10] MEDS: SENNOSIDES 1 TABLET PO PRN (08:01)
[2024-08-10 09:16] LABS: CALCIUM 8.2 mg/dL (8.5-10.1); CARBON DIOXIDE 25 mmol/L (21-32); CHLORIDE 101 mmol/L (98-107); CREATININE 2.3 mg/dL (0.6-1.3); GLUCOSE 350 mg/dL (74-106); MAGNESIUM 1.9 mg/dL (1.8-2.4); PHOSPHOROUS 3.5 mg/dL (2.5-4.9); SODIUM SERUM 137 mmol/L (136-145); UREA NITROGEN, BLOOD 58 mg/dL (7-18)
[2024-08-10 09:21] LABS: BASOPHILS % (AUTO) 0.2 % (0.0-2.0); EOSINOPHILS # (AUTO) 8.2 K/uL (0.0-0.7); HEMATOCRIT 44.7 % (31.2-41.9); HEMOGLOBIN 14.9 g/dL (10.9-14.3); LYMPHOCYTES # (AUTO) 1.7 K/uL (0.8-4.8); LYMPHOCYTES % (AUTO) 8.2 % (20.5-51.5); MEAN CORPUSCULAR HEMOGLOBIN 29.7 uug (24.7-32.8); MEAN CORPUSCULAR HGB CONC 33 g/dL (32.3-35.6); MEAN CORPUSCULAR VOLUME 89.3 fL (75.5-95.3); MONOCYTES # (AUTO) 0.8 K/uL (0.1-1.30); MONOCYTES % (AUTO) 4.1 % (0.0-11.0); NEUTROPHILS # (AUTO) 9.5 K/uL (1.8-8.9); NEUTROPHILS % (AUTO) 46.9 % (38.5-71.5); PLATELET COUNT (AUTO) 283 K/uL (179-408); RED BLOOD CELL COUNT(AUTO) 5.01 MIL/uL (3.63-4.92); RED CELL DISTRIBUTION WIDTH 14.4 % (12.3-17.7); WHITE BLOOD COUNT (AUTO) 20.2 K/uL (3.8-11.8)
[2024-08-10 09:22] LABS: DIFFERENTIAL COMMENT 1; EOSINOPHILS % (AUTO) 40.6 % (0.0-7.0)
[2024-08-10] MEDS ORDERED: FUROSEMIDE 40 MG TABLET PO SCH (09:30)
[2024-08-10] MEDS: AMIODARONE HCL IV 150 MG in IV DEXTROSE 5% 100 ML IV ONE (10:19)
[2024-08-10] MEDS: AMIODARONE HCL IV 450 MG in IV DEXTROSE 5% 250 ML IV PRN (10:38)
[2024-08-10] MEDS: INSULIN GLARGINE,HUM 300 UNITS/3 ML CARTRIDGE SQ SCH (11:10)
[2024-08-10 11:41] LABS: EOSINOPHILS % (MANUAL) 37 % (0-8); LYMPHOCYTES % (MANUAL) 14 % (20-40); MONOCYTES % (MANUAL) 3 % (2-10); NEUTROPHILS % (MANUAL) 46 % (42-75)
[2024-08-10 11:42] LABS: ANISOCYTOSIS 1+; PLATELET ESTIMATE ADEQUATE
[2024-08-10 12:00] VITALS: BP 141/72; TEMP 97.6; O2SAT 98
[2024-08-10] MEDS: IV NS 1000 ML 1,000 ML IV PRN (12:05)
[2024-08-10 15:49] LABS: *BILIRUBIN,URIN NEGATIVE (NEGATIVE); *BLOOD, URINE 3+ (NEGATIVE); *CLARITY,URINE CLEAR (CLEAR); *COLOR,URINE YELLOW (YELLOW); *KETONES,URINE NEGATIVE (NEGATIVE); *PROTEIN,URINE TRACE (NEGATIVE); *UROBILINOGEN,URINE 0.2 E.U./dl (NORMAL); LEUKOCYTE ESTERASE ,URINE TRACE (NEGATIVE); NITRITE, URINE NEGATIVE (NEGATIVE); PH,URINE 5.5 (5.0-8.0)
[2024-08-10 15:57] LABS: UGLUCOSE 2+ (NEGATIVE)
[2024-08-10 16:00] VITALS: BP 106/53; TEMP 97.2; O2SAT 95
[2024-08-10 16:05] LABS: BACTERIA,URINE MODERATE /HPF (NONE SEEN); SQUAMOUS EPITHELIAL CELL,UR MODERATE /HPF (NONE SEEN)
[2024-08-10] MEDS ORDERED: hydrALAZINE HCL 25 MG TABLET PO PRN (18:45)
[2024-08-10] MEDS ORDERED: LEVALBUTEROL HCL NEB 0.63 MG/3 ML NEBU NEB PRN (19:30)
[2024-08-10 19:40] VITALS: BP 122/53; TEMP 98.1; O2SAT 94
[2024-08-10] MEDS: CEFTRIAXONE 1 G in IV DEXTROSE 5% 50 ML IV SCH (20:13)
[2024-08-10] MEDS: FAMOTIDINE. 20 MG/2 ML VIAL IV SCH (20:47)
[2024-08-10] MEDS: diphenhydrAMINE 50 MG/1 ML VIAL IV PRN (22:15)
[2024-08-11 00:01] VITALS: BP 104/40; TEMP 97.6; O2SAT 96
[2024-08-11 05:15] VITALS: BP 145/72; TEMP 98; O2SAT 97
[2024-08-11 07:28] LABS: BASOPHILS # (AUTO) 0.1 K/UL (0.0-0.2); BASOPHILS % (AUTO) 0.3 % (0.0-2.0); HEMATOCRIT 45.9 % (31.2-41.9); HEMOGLOBIN 15.1 g/dL (10.9-14.3); LYMPHOCYTES # (AUTO) 2.1 K/uL (0.8-4.8); LYMPHOCYTES % (AUTO) 8.8 % (20.5-51.5); MEAN CORPUSCULAR HEMOGLOBIN 29.7 uug (24.7-32.8); MEAN CORPUSCULAR HGB CONC 33 g/dL (32.3-35.6); MEAN CORPUSCULAR VOLUME 89.9 fL (75.5-95.3); MONOCYTES # (AUTO) 0.7 K/uL (0.1-1.30); NEUTROPHILS # (AUTO) 10.7 K/uL (1.8-8.9); NEUTROPHILS % (AUTO) 45.6 % (38.5-71.5); PLATELET COUNT (AUTO) 262 K/uL (179-408); RED BLOOD CELL COUNT(AUTO) 5.11 MIL/uL (3.63-4.92); RED CELL DISTRIBUTION WIDTH 14.8 % (12.3-17.7); WHITE BLOOD COUNT (AUTO) 23.6 K/uL (3.8-11.8)
[2024-08-11 07:35] VITALS: BP 110/58; TEMP 98.1; O2SAT 98
[2024-08-11 07:49] LABS: DIFFERENTIAL COMMENT 1; EOSINOPHILS % (AUTO) 42.3 % (0.0-7.0)
[2024-08-11 07:52] LABS: ALANINE AMINOTRANSFERASE 25 U/L (14-59); ALBUMIN 2.5 g/dL (3.4-5.0); ALKALINE PHOSPHATASE 113 U/L (50-136); ASPARTATE AMINOTRANSFERASE 11 U/L (15-37); BILIRUBIN,TOTAL 0.7 mg/dL (0.2-1.0); CALCIUM 8.3 mg/dL (8.5-10.1); CARBON DIOXIDE 20 mmol/L (21-32); CHLORIDE 100 mmol/L (98-107); CREATININE 2.1 mg/dL (0.6-1.3); GLUCOSE 226 mg/dL (74-106); MAGNESIUM 1.9 mg/dL (1.8-2.4); PHOSPHOROUS 3.5 mg/dL (2.5-4.9); POTASSIUM 4.5 mmol/L (3.5-5.1); SODIUM SERUM 132 mmol/L (136-145); TOTAL PROTEIN, SERUM 6.4 g/dL (6.4-8.2); UREA NITROGEN, BLOOD 54 mg/dL (7-18)
[2024-08-11] MEDS: FUROSEMIDE 20 MG/2 ML VIAL IV SCH (08:17)
[2024-08-11] MEDS: ASPIRIN EC 81 MG TABLET.DR PO SCH (08:18)
[2024-08-11] MEDS: ALLOPURINOL 300 MG TABLET PO SCH (08:18)
[2024-08-11] MEDS ORDERED: FAMOTIDINE 20 MG TABLET PO SCH (09:00)
[2024-08-11 09:30] LABS: LYMPHOCYTES % (MANUAL) 9 % (20-40); NEUTROPHILS % (MANUAL) 49 % (42-75)
[2024-08-11 09:31] LABS: EOSINOPHILS % (MANUAL) 39 % (0-8); MONOCYTES % (MANUAL) 3 % (2-10); PLATELET ESTIMATE ADEQUATE
[2024-08-11] MEDS ORDERED: AMIODARONE HCL IV 450 MG in IV DEXTROSE 5% 250 ML IV PRN (10:15)
[2024-08-11] MEDS: methylPREDNISolone SOD SUCC 40 MG/ML VIAL IV SCH (12:40)
[2024-08-11 16:00] VITALS: BP 108/89; TEMP 98.1; O2SAT 98
[2024-08-11] MEDS: LIDOCAINE HCL 2% 20 ML VIAL IJ ONE (16:00)
[2024-08-11] MEDS ORDERED: CARVEDILOL 6.25 MG TABLET PO SCH (17:00)
[2024-08-11] MEDS: CARVEDILOL 12.5 MG TABLET PO SCH (17:19)
[2024-08-11] MEDS: DEXAMETHASONE IV SCH (17:30)
[2024-08-11] MEDS: [UNRECOGNIZED DRUG - OTHER] IV SCH (17:30)
[2024-08-11 20:00] VITALS: BP 109/65; TEMP 97.6; O2SAT 98
[2024-08-12 06:34] VITALS: BP 135/66; TEMP 97.6; O2SAT 94
[2024-08-12 07:31] VITALS: BP 125/47; TEMP 97.9; O2SAT 100
[2024-08-12] MEDS: FUROSEMIDE 40 MG TABLET PO SCH (09:36)
[2024-08-12] MEDS: INSULIN GLARGINE,HUM 300 UNITS/3 ML CARTRIDGE SQ SCH (09:38)
[2024-08-12 11:31] VITALS: BP 138/46; TEMP 97.8; O2SAT 100
[2024-08-12 15:35] VITALS: BP 111/51; TEMP 97.8; O2SAT 99
[2024-08-12] MEDS: DEXAMETHASONE 8 MG IV SCH (17:25)
[2024-08-12] MEDS: SODIUM CHLORIDE IV SCH (17:25)
[2024-08-12] MEDS: FAMOTIDINE 20 MG TABLET PO SCH (22:04)
[2024-08-12 22:42] VITALS: BP 101/42; TEMP 98.9; O2SAT 96
[2024-08-13 03:59] VITALS: TEMP 97.7
[2024-08-13 09:06] LABS: A/G RATIO 0.9 (0.7-1.7); ALBUMIN 2.7 g/dL (2.9-4.4); ALPHA-1-GLOBULIN 0.3 g/dL (0.0-0.4); ALPHA-2-GLOBULIN 0.7 g/dL (0.4-1.0); BETA GLOBULIN 1.1 g/dL (0.7-1.3); GAMMA GLOBULIN 0.8 g/dL (0.4-1.8); GLOBULIN, TOTAL 2.9 g/dL (2.2-3.9); M-SPIKE Not Observed g/dL (Not Observed); PROTEIN, TOTAL 5.6 g/dL (6.0-8.5)
[2024-08-13 11:12] VITALS: BP 128/53; TEMP 98.6; O2SAT 98
[2024-08-13] MEDS: LORAZEPAM 2 MG/1 ML VIAL IV ONE (11:27)
[2024-08-13 13:24] LABS: BASOPHILS % (AUTO) 0.2 % (0.0-2.0); EOSINOPHILS # (AUTO) 0.2 K/uL (0.0-0.7); EOSINOPHILS % (AUTO) 1.8 % (0.0-7.0); HEMATOCRIT 39.1 % (31.2-41.9); HEMOGLOBIN 12.7 g/dL (10.9-14.3); LYMPHOCYTES # (AUTO) 1.1 K/uL (0.8-4.8); LYMPHOCYTES % (AUTO) 9.4 % (20.5-51.5); MEAN CORPUSCULAR HEMOGLOBIN 28.9 uug (24.7-32.8); MEAN CORPUSCULAR HGB CONC 32 g/dL (32.3-35.6); MEAN CORPUSCULAR VOLUME 89.1 fL (75.5-95.3); MONOCYTES # (AUTO) 0.8 K/uL (0.1-1.30); MONOCYTES % (AUTO) 7.1 % (0.0-11.0); NEUTROPHILS # (AUTO) 9.5 K/uL (1.8-8.9); NEUTROPHILS % (AUTO) 81.5 % (38.5-71.5); PLATELET COUNT (AUTO) 276 K/uL (179-408); RED BLOOD CELL COUNT(AUTO) 4.39 MIL/uL (3.63-4.92); RED CELL DISTRIBUTION WIDTH 14.9 % (12.3-17.7); WHITE BLOOD COUNT (AUTO) 11.7 K/uL (3.8-11.8)
[2024-08-13 13:34] LABS: DIFFERENTIAL COMMENT 1
[2024-08-13 13:49] LABS: MAGNESIUM 1.9 mg/dL (1.8-2.4)
[2024-08-13 13:50] LABS: ALANINE AMINOTRANSFERASE 23 U/L (14-59); ALBUMIN 2.6 g/dL (3.4-5.0); ALKALINE PHOSPHATASE 136 U/L (50-136); ASPARTATE AMINOTRANSFERASE < 5 U/L (15-37); BILIRUBIN,TOTAL 0.4 mg/dL (0.2-1.0); CALCIUM 8.5 mg/dL (8.5-10.1); CARBON DIOXIDE 25 mmol/L (21-32); CHLORIDE 98 mmol/L (98-107); CREATININE 1.7 mg/dL (0.6-1.3); GLUCOSE 347 mg/dL (74-106); POTASSIUM 4.5 mmol/L (3.5-5.1); SODIUM SERUM 134 mmol/L (136-145); TOTAL PROTEIN, SERUM 6.5 g/dL (6.4-8.2); UREA NITROGEN, BLOOD 51 mg/dL (7-18)
[2024-08-13 15:13] VITALS: BP 130/49; TEMP 98.3; O2SAT 96
[2024-08-13] MEDS: SODIUM CHLORIDE IV SCH (17:52)
[2024-08-13] MEDS: DEXAMETHASONE 4 MG IV SCH (17:52)
[2024-08-13 19:00] VITALS: BP 134/63; TEMP 98.7; O2SAT 97
[2024-08-13] MEDS: LORAZEPAM 1 MG TABLET PO PRN (23:42)
[2024-08-14 06:00] VITALS: BP 123/56; TEMP 98.3; O2SAT 95
[2024-08-14 06:45] LABS: BASOPHILS % (AUTO) 0.1 % (0.0-2.0); EOSINOPHILS # (AUTO) 0.1 K/uL (0.0-0.7); EOSINOPHILS % (AUTO) 0.9 % (0.0-7.0); HEMATOCRIT 33.7 % (31.2-41.9); HEMOGLOBIN 11.6 g/dL (10.9-14.3); LYMPHOCYTES % (AUTO) 13.3 % (20.5-51.5); MEAN CORPUSCULAR HEMOGLOBIN 30.5 uug (24.7-32.8); MEAN CORPUSCULAR HGB CONC 35 g/dL (32.3-35.6); MEAN CORPUSCULAR VOLUME 88.6 fL (75.5-95.3); MONOCYTES # (AUTO) 0.5 K/uL (0.1-1.30); MONOCYTES % (AUTO) 6.7 % (0.0-11.0); NEUTROPHILS # (AUTO) 6.2 K/uL (1.8-8.9); PLATELET COUNT (AUTO) 259 K/uL (179-408); RED BLOOD CELL COUNT(AUTO) 3.81 MIL/uL (3.63-4.92); RED CELL DISTRIBUTION WIDTH 14.5 % (12.3-17.7); WHITE BLOOD COUNT (AUTO) 7.8 K/uL (3.8-11.8)
[2024-08-14 06:51] LABS: CALCIUM 7.9 mg/dL (8.5-10.1); CARBON DIOXIDE 28 mmol/L (21-32); CHLORIDE 105 mmol/L (98-107); CREATININE 1.4 mg/dL (0.6-1.3); GLUCOSE 249 mg/dL (74-106); POTASSIUM 4.9 mmol/L (3.5-5.1); SODIUM SERUM 139 mmol/L (136-145); UREA NITROGEN, BLOOD 45 mg/dL (7-18)
[2024-08-14 07:30] LABS: DIFFERENTIAL COMMENT 1
[2024-08-14] MEDS: FAMOTIDINE 20 MG TABLET PO SCH (09:25)
[2024-08-14] MEDS: INSULIN GLARGINE,HUM 300 UNITS/3 ML CARTRIDGE SQ SCH (09:33)
[2024-08-14 16:00] VITALS: BP_SYST 133; BP_SYST 163; BP_DIAS 50; BP_DIAS 63; TEMP 98; TEMP 98.5; O2SAT 96
[2024-08-14] MEDS: CEFTRIAXONE 2 G in IV DEXTROSE 5% 100 ML IV SCH (17:15)
[2024-08-14 19:00] VITALS: BP 131/53; TEMP 98.3; O2SAT 97
[2024-08-14] MEDS: MUPIROCIN 2% OINT 22 GM TUBE TP SCH (21:18)
[2024-08-15 06:00] VITALS: BP 137/54; TEMP 98; O2SAT 95
[2024-08-15] MEDS: FLUOCINONIDE 0.05% CREAM 30 GM TUBE TP SCH (09:28)
[2024-08-15 11:15] VITALS: BP 139/53; TEMP 98.2; O2SAT 98
[2024-08-15 16:08] VITALS: BP 132/65; TEMP 98.4; O2SAT 96
[2024-08-15 19:00] VITALS: BP 135/65; TEMP 98; O2SAT 98
[2024-08-16] MEDS: GUAIFENESIN/DEXTROMETHORPHAN 5 ML UDC PO PRN (04:09)
[2024-08-16 06:09] VITALS: BP 108/45; TEMP 98.6; O2SAT 96
[2024-08-16] MEDS ORDERED: ALBUTEROL SULFATE 1.25 MG/3 ML NEBU NEB PRN (07:15)
[2024-08-16 08:09] LABS: CALCIUM 7.8 mg/dL (8.5-10.1); CARBON DIOXIDE 28 mmol/L (21-32); CHLORIDE 103 mmol/L (98-107); CREATININE 1.1 mg/dL (0.6-1.3); GLUCOSE 69 mg/dL (74-106); POTASSIUM 4.8 mmol/L (3.5-5.1); SODIUM SERUM 134 mmol/L (136-145); UREA NITROGEN, BLOOD 37 mg/dL (7-18)
[2024-08-16] MEDS: LORATADINE 10 MG TABLET PO SCH (09:33)
[2024-08-16 19:15] VITALS: BP 145/68; TEMP 98.3; O2SAT 95
[2024-08-16] MEDS: methylPREDNISolone SOD SUCC 125 MG/2 ML VIAL IV ONE (20:14)
[2024-08-17 05:14] VITALS: BP 115/55; TEMP 98.5; O2SAT 95
[2024-08-17 07:30] LABS: BASOPHILS % (AUTO) 0.1 % (0.0-2.0); EOSINOPHILS % (AUTO) 0.2 % (0.0-7.0); HEMATOCRIT 37.6 % (31.2-41.9); HEMOGLOBIN 12.4 g/dL (10.9-14.3); LYMPHOCYTES # (AUTO) 0.8 K/uL (0.8-4.8); LYMPHOCYTES % (AUTO) 16.4 % (20.5-51.5); MEAN CORPUSCULAR HEMOGLOBIN 29.5 uug (24.7-32.8); MEAN CORPUSCULAR HGB CONC 33 g/dL (32.3-35.6); MEAN CORPUSCULAR VOLUME 89.7 fL (75.5-95.3); MONOCYTES # (AUTO) 0.1 K/uL (0.1-1.30); MONOCYTES % (AUTO) 1.5 % (0.0-11.0); NEUTROPHILS # (AUTO) 4.1 K/uL (1.8-8.9); NEUTROPHILS % (AUTO) 81.8 % (38.5-71.5); PLATELET COUNT (AUTO) 229 K/uL (179-408); RED BLOOD CELL COUNT(AUTO) 4.19 MIL/uL (3.63-4.92); WHITE BLOOD COUNT (AUTO) 5.1 K/uL (3.8-11.8)
[2024-08-17 07:45] LABS: DIFFERENTIAL COMMENT 1
[2024-08-17 07:48] LABS: ALANINE AMINOTRANSFERASE 46 U/L (14-59); ALBUMIN 2.1 g/dL (3.4-5.0); ALKALINE PHOSPHATASE 144 U/L (50-136); ASPARTATE AMINOTRANSFERASE 31 U/L (15-37); BILIRUBIN,TOTAL 0.2 mg/dL (0.2-1.0); CALCIUM 7.9 mg/dL (8.5-10.1); CARBON DIOXIDE 27 mmol/L (21-32); CHLORIDE 103 mmol/L (98-107); CREATININE 1.1 mg/dL (0.6-1.3); GLUCOSE 268 mg/dL (74-106); MAGNESIUM 1.9 mg/dL (1.8-2.4); PHOSPHOROUS 3.8 mg/dL (2.5-4.9); POTASSIUM 4.8 mmol/L (3.5-5.1); SODIUM SERUM 137 mmol/L (136-145); TOTAL PROTEIN, SERUM 5.3 g/dL (6.4-8.2); UREA NITROGEN, BLOOD 38 mg/dL (7-18)
[2024-08-17] MEDS: predniSONE 20 MG TABLET PO SCH (08:15)
[2024-08-17] MEDS: INSULIN GLARGINE,HUM 300 UNITS/3 ML CARTRIDGE SQ SCH (08:20)
[2024-08-17 11:21] VITALS: BP 109/82; TEMP 97.6; O2SAT 96
[2024-08-17] MEDS: INSULIN REGULAR, HUMAN 1000 UNIT/10 ML VIAL SQ ONE (11:29)
[2024-08-17 17:07] VITALS: TEMP 93.2
[2024-08-17 19:00] VITALS: BP 140/92; TEMP 98.6; O2SAT 96
[2024-08-18 05:50] VITALS: BP 141/75; TEMP 97.6; O2SAT 95
[2024-08-18 06:58] LABS: BASOPHILS % (AUTO) 0.1 % (0.0-2.0); HEMATOCRIT 36.6 % (31.2-41.9); HEMOGLOBIN 12.1 g/dL (10.9-14.3); LYMPHOCYTES # (AUTO) 1.4 K/uL (0.8-4.8); LYMPHOCYTES % (AUTO) 16.6 % (20.5-51.5); MEAN CORPUSCULAR HEMOGLOBIN 29.3 uug (24.7-32.8); MEAN CORPUSCULAR HGB CONC 33 g/dL (32.3-35.6); MEAN CORPUSCULAR VOLUME 88.5 fL (75.5-95.3); MONOCYTES # (AUTO) 0.7 K/uL (0.1-1.30); MONOCYTES % (AUTO) 7.8 % (0.0-11.0); NEUTROPHILS # (AUTO) 6.4 K/uL (1.8-8.9); NEUTROPHILS % (AUTO) 75.5 % (38.5-71.5); PLATELET COUNT (AUTO) 244 K/uL (179-408); RED BLOOD CELL COUNT(AUTO) 4.13 MIL/uL (3.63-4.92); RED CELL DISTRIBUTION WIDTH 15.3 % (12.3-17.7); WHITE BLOOD COUNT (AUTO) 8.4 K/uL (3.8-11.8)
[2024-08-18 07:12] LABS: DIFFERENTIAL COMMENT 1
[2024-08-18 07:14] LABS: ALANINE AMINOTRANSFERASE 40 U/L (14-59); ALBUMIN 2.3 g/dL (3.4-5.0); ALKALINE PHOSPHATASE 133 U/L (50-136); ASPARTATE AMINOTRANSFERASE 19 U/L (15-37); BILIRUBIN,DIRECT 0.2 mg/dL (0.0-0.2); BILIRUBIN,TOTAL 0.4 mg/dL (0.2-1.0); CALCIUM 8.3 mg/dL (8.5-10.1); CARBON DIOXIDE 30 mmol/L (21-32); CHLORIDE 105 mmol/L (98-107); CREATININE 1.2 mg/dL (0.6-1.3); GLUCOSE 116 mg/dL (74-106); POTASSIUM 4.4 mmol/L (3.5-5.1); SODIUM SERUM 143 mmol/L (136-145); TOTAL PROTEIN, SERUM 5.4 g/dL (6.4-8.2); UREA NITROGEN, BLOOD 42 mg/dL (7-18)
[2024-08-18] MEDS: TRIAMCINOLONE ACET 0.1% CREAM 15 GM TUBE TOP SCH (09:53)
[2024-08-18 13:00] VITALS: BP 138/61; TEMP 97.7; O2SAT 94
[2024-08-18 19:17] VITALS: BP 138/61; TEMP 97.4; O2SAT 97
[2024-08-18 20:00] VITALS: BP 151/71; TEMP 97.8; O2SAT 96
[2024-08-19 05:00] VITALS: BP 149/70; TEMP 98; O2SAT 97
[2024-08-19 07:38] VITALS: BP 132/75; TEMP 97.7; O2SAT 94
[2024-08-19] MEDS: predniSONE 20 MG TABLET PO SCH (08:29)
[2024-08-19 08:39] LABS: BASOPHILS % (AUTO) 0.2 % (0.0-2.0); EOSINOPHILS % (AUTO) 0.4 % (0.0-7.0); HEMATOCRIT 38.8 % (31.2-41.9); HEMOGLOBIN 12.7 g/dL (10.9-14.3); LYMPHOCYTES # (AUTO) 1.4 K/uL (0.8-4.8); MEAN CORPUSCULAR HEMOGLOBIN 29.2 uug (24.7-32.8); MEAN CORPUSCULAR HGB CONC 33 g/dL (32.3-35.6); MEAN CORPUSCULAR VOLUME 88.9 fL (75.5-95.3); MONOCYTES # (AUTO) 0.7 K/uL (0.1-1.30); MONOCYTES % (AUTO) 9.1 % (0.0-11.0); NEUTROPHILS # (AUTO) 5.9 K/uL (1.8-8.9); NEUTROPHILS % (AUTO) 73.3 % (38.5-71.5); PLATELET COUNT (AUTO) 279 K/uL (179-408); RED BLOOD CELL COUNT(AUTO) 4.36 MIL/uL (3.63-4.92); WHITE BLOOD COUNT (AUTO) 8.1 K/uL (3.8-11.8)
[2024-08-19 08:40] LABS: CALCIUM 8.4 mg/dL (8.5-10.1); CARBON DIOXIDE 30 mmol/L (21-32); CHLORIDE 102 mmol/L (98-107); GLUCOSE 77 mg/dL (74-106); POTASSIUM 4.4 mmol/L (3.5-5.1); SODIUM SERUM 136 mmol/L (136-145); UREA NITROGEN, BLOOD 42 mg/dL (7-18)
[2024-08-19 08:45] LABS: ALANINE AMINOTRANSFERASE 45 U/L (14-59); ALBUMIN 2.4 g/dL (3.4-5.0); ALKALINE PHOSPHATASE 150 U/L (50-136); ASPARTATE AMINOTRANSFERASE 16 U/L (15-37); BILIRUBIN,TOTAL 0.6 mg/dL (0.2-1.0); TOTAL PROTEIN, SERUM 6.2 g/dL (6.4-8.2)
[2024-08-19 16:06] VITALS: BP 148/92; TEMP 97.6; O2SAT 99
[2024-08-19] MEDS ORDERED: ASPI-618 PO (16:12)
[2024-08-19] MEDS ORDERED: APIX2.5T PO (16:12)
[2024-08-19] MEDS ORDERED: HYDR-894 PO (16:12)
[2024-08-19] MEDS ORDERED: Insulin Glargine,Hum SQ (16:12)
[2024-08-19] MEDS ORDERED: CARV12.52 PO (16:12)
[2024-08-19] MEDS ORDERED: Blood Sugar Diagnostic VI (16:12)
[2024-08-19] MEDS ORDERED: FAMO20TA8 PO (16:12)
[2024-08-19] MEDS ORDERED: INSU100V28 SQ ×2 (16:12)
[2024-08-19] MEDS ORDERED: ALBU1.25 NEB (16:12)
[2024-08-19] MEDS ORDERED: FLUO15CR TP (16:12)
[2024-08-19] MEDS ORDERED: ALLO300T2 PO (16:12)
[2024-08-19] MEDS ORDERED: OXYB5TAB29 PO (16:12)
[2024-08-19] MEDS ORDERED: LORA-114 PO (16:12)
[2024-08-19] MEDS ORDERED: MENT113O TP (16:12)
[2024-08-19] MEDS ORDERED: ACET325T53 PO (16:12)
[2024-08-19] MEDS ORDERED: DIPH50VI15 IV (16:12)
[2024-08-19] MEDS ORDERED: SENN-175 PO (16:12)
[2024-08-19] MEDS ORDERED: BISA10SU12 RC (16:12)
[2024-08-19] MEDS ORDERED: DEXT50DI8 IV (16:12)
[2024-08-19] MEDS ORDERED: TRIA15CR4 TOP (16:12)
[2024-08-19] MEDS ORDERED: MELA3TAB41 PO (16:12)
[2024-08-19] MEDS ORDERED: GUAI5SYR PO (16:12)
[2024-08-19 16:13] VITALS: BP 148/92
[2024-08-20] MEDS ORDERED: INSU100V7 SQ (09:30)
[2024-08-24] MEDS ORDERED: predniSONE 20 MG TABLET PO SCH (08:00)
[2024-08-27] MEDS ORDERED: predniSONE 50 MG TABLET PO SCH (08:00)
[2024-08-30] MEDS ORDERED: predniSONE 20 MG TABLET PO SCH (08:00)
[2024-09-02] MEDS ORDERED: predniSONE 10 MG TABLET PO SCH (08:00)
[2024-09-05] MEDS ORDERED: predniSONE 20 MG TABLET PO SCH (08:00)
[2024-09-08] MEDS ORDERED: predniSONE 10 MG TABLET PO SCH (08:00)
[2024-09-11] MEDS ORDERED: predniSONE 5 MG TABLET PO SCH (08:00)
[2024-09-14] MEDS ORDERED: predniSONE 2.5 MG TABLET PO SCH (08:00)
== END 2024-08-19 18:40 | DRG 595 ==
LOC: ER 18:50 → CCU 22:25 → TELE3 22:39 → UNDOADMIN 22:39 → TELE-TD3 08-09 08:52 → MEDSURG3 08-12 09:27 → MEDSURG1 08-18 09:14
PROVIDERS: ADMIT Nurse Practitioner Family; ATTEND Nurse Practitioner Family
PROC: 05HC33Z Insertion of Infusion Device into Left Basilic Vein, Percutaneous Approach (ICD-10-PCS; principal; 2024-08-10)
DX: L10.0 Pemphigus vulgaris (principal); E43 Unspecified severe protein-calorie malnutrition; N17.0 Acute kidney failure with tubular necrosis; I50.33 Acute on chronic diastolic (congestive) heart failure; I13.0 Hypertensive heart and chronic kidney disease with heart failure and stage 1 through stage 4 chronic kidney disease, or unspecified chronic kidney disease; I48.20 Chronic atrial fibrillation, unspecified; E87.1 Hypo-osmolality and hyponatremia; N39.0 Urinary tract infection, site not specified; D68.59 Other primary thrombophilia; L12.8 Other pemphigoid; L29.9 Pruritus, unspecified; Z68.38 Body mass index [BMI] 38.0-38.9, adult; M15.9 Polyosteoarthritis, unspecified; H91.93 Unspecified hearing loss, bilateral; E79.0 Hyperuricemia without signs of inflammatory arthritis and tophaceous disease; E66.01 Morbid (severe) obesity due to excess calories; E78.5 Hyperlipidemia, unspecified; E83.51 Hypocalcemia; T50.2X5A Adverse effect of carbonic-anhydrase inhibitors, benzothiadiazides and other diuretics, initial encounter; Y92.039 Unspecified place in apartment as the place of occurrence of the external cause; N18.2 Chronic kidney disease, stage 2 (mild); Z74.09 Other reduced mobility; E11.65 Type 2 diabetes mellitus with hyperglycemia; Z79.4 Long term (current) use of insulin; S80.812A Abrasion, left lower leg, initial encounter; S80.811A Abrasion, right lower leg, initial encounter; Y33.XXXA Other specified events, undetermined intent, initial encounter; T38.0X5A Adverse effect of glucocorticoids and synthetic analogues, initial encounter; E88.09 Other disorders of plasma-protein metabolism, not elsewhere classified; E86.1 Hypovolemia; E11.22 Type 2 diabetes mellitus with diabetic chronic kidney disease; Z79.84 Long term (current) use of oral hypoglycemic drugs; Z79.899 Other long term (current) drug therapy; Z91.199 Patient's noncompliance with other medical treatment and regimen due to unspecified reason; Z79.01 Long term (current) use of anticoagulants; I48.0 Paroxysmal atrial fibrillation
CPT/HCPCS: 36415; 70030-TC; 71045; 82533; 83735; 83970; 84100; 84155; 84165; 84300; 84443; 84484; 84550; 85025; 87040; 93005; A4606; A4663; A6213; G0378; J0282; J0696; J1100; J1200; J1650; J1720; J1815; J1940; J2060; J2919; J3490; J7040; J7050; J7512

== ENCOUNTER 2024-08-19 19:06 | Inpatient (IN) | payer MEDICARE, OTHER ==
[~2024-08-19] VITALS: Ht 165.1 cm; Wt 104.8 kg
[~2024-08-19 19:06] MED LIST changes: +ACET-73 PO; +ACET325T53 PO; +ALBU1.25 NEB; +ALBU2.5V13 NEB; +ALLO300T2 PO; +AMIN30LI2 PO; +APIX2.5T PO; +ASCO500T85 PO; +ASPI-618 PO; +BENZ200C53 PO; +BISA10SU12 RC; +BISA10SU61 RC; +Blood Sugar Diagnostic VI; +CARV12.52 PO; +CARV6.252 PO; -CLIN300C12 PO; +DEXT50DI8 IV; +DIPH50VI15 IV; +FAMO20TA8 PO; +FERR-68 PO; +FLUO15CR TP; -FLUT16SP BNOSTRILS; +FURO20TA4 PO; -GLIP-19 PO; +GUAI5SYR PO; +HYDR-894 PO; -HYDR12.55 PO; +INSU100V SQ; +INSU100V28 SQ; +INSU100V7 SQ; +IPRA0.2S48 NEB; +Insulin Glargine,Hum SQ; +LIDO30AD10 TD; +LORA-114 PO; +LORA-972 PO; -LOSA50TA39 PO; +MAGN400O6 PO; +MELA3TAB41 PO; +MELA5TAB PO; +MENT113O TP; -METO-356 PO; +MULT-1045 PO; +NA P133E RC; +OXYB5TAB29 PO; -POLY30DR OP; -PRAV80TA21 PO; +ROSU5TAB PO; +SAXA5TAB PO; +SENN-175 PO; +SENN8.6T19 PO; -SITA50TA PO; -SOLI5TAB2 PO; +SPIR25TA6 PO; +TRIA15CR4 TOP; +ZINC50TA69 PO; +[UNRECOGNIZED DRUG - CODE] TP
[2024-08-19 20:13] VITALS: BP 130/55; TEMP 97.7; O2SAT 95
[2024-08-19] MEDS ORDERED: DEXTROSE 50% 50 ML DISP.SYRIN IV PRN (21:30)
[2024-08-19] MEDS: MELATONIN 3 MG TABLET PO SCH (22:09)
[2024-08-19] MEDS: BLOOD SUGAR DIAGNOSTIC 1 EACH STRIP VI SCH (22:16)
[2024-08-19] MEDS: INSULIN REGULAR, HUMAN 300 UNITS/3 ML VIAL SQ PRN (22:23)
[2024-08-20] MEDS: BLOOD SUGAR DIAGNOSTIC 1 EACH STRIP VI SCH (06:55)
[2024-08-20 07:41] VITALS: BP 124/51; TEMP 97.9; O2SAT 97
[2024-08-20 08:09] LABS: BASOPHILS % (AUTO) 0.2 % (0.0-2.0); EOSINOPHILS % (AUTO) 0.3 % (0.0-7.0); HEMATOCRIT 40.5 % (31.2-41.9); HEMOGLOBIN 13.4 g/dL (10.9-14.3); LYMPHOCYTES # (AUTO) 1.3 K/uL (0.8-4.8); LYMPHOCYTES % (AUTO) 15.3 % (20.5-51.5); MEAN CORPUSCULAR HEMOGLOBIN 29.5 uug (24.7-32.8); MEAN CORPUSCULAR HGB CONC 33 g/dL (32.3-35.6); MEAN CORPUSCULAR VOLUME 89.4 fL (75.5-95.3); MONOCYTES # (AUTO) 1.1 K/uL (0.1-1.30); MONOCYTES % (AUTO) 12.3 % (0.0-11.0); NEUTROPHILS # (AUTO) 6.2 K/uL (1.8-8.9); NEUTROPHILS % (AUTO) 71.9 % (38.5-71.5); PLATELET COUNT (AUTO) 269 K/uL (179-408); RED BLOOD CELL COUNT(AUTO) 4.53 MIL/uL (3.63-4.92); RED CELL DISTRIBUTION WIDTH 15.2 % (12.3-17.7); WHITE BLOOD COUNT (AUTO) 8.6 K/uL (3.8-11.8)
[2024-08-20 08:23] LABS: DIFFERENTIAL COMMENT 1
[2024-08-20 08:27] LABS: CALCIUM 8.2 mg/dL (8.5-10.1); CARBON DIOXIDE 29 mmol/L (21-32); CHLORIDE 102 mmol/L (98-107); CREATININE 1.4 mg/dL (0.6-1.3); GLUCOSE 102 mg/dL (74-106); POTASSIUM 4.7 mmol/L (3.5-5.1); SODIUM SERUM 139 mmol/L (136-145); UREA NITROGEN, BLOOD 50 mg/dL (7-18)
[2024-08-20] MEDS ORDERED: INSU100V7 SQ (09:30)
[2024-08-20] MEDS: predniSONE 20 MG TABLET PO ONE (10:03)
[2024-08-20] MEDS: INSULIN REGULAR, HUMAN 1000 UNIT/10 ML VIAL SQ PRN (12:16)
[2024-08-20] MEDS: OXYBUTYNIN CHLORIDE 5 MG TABLET PO ONE (14:18)
[2024-08-20] MEDS: ALLOPURINOL 300 MG TABLET PO ONE (14:18)
[2024-08-20] MEDS: FAMOTIDINE 20 MG TABLET PO ONE (14:18)
[2024-08-20] MEDS: LORATADINE 10 MG TABLET PO ONE (14:18)
[2024-08-20] MEDS: ASPIRIN 81 MG TAB.CHEW PO ONE (14:19)
[2024-08-20] MEDS: APIXABAN 2.5 MG TABLET PO ONE (14:21)
[2024-08-20 15:00] VITALS: BP 132/61; TEMP 98.1; O2SAT 96
[2024-08-20] MEDS ORDERED: ALBUTEROL SULFATE 1.25 MG/3 ML NEBU NEB PRN (18:15)
[2024-08-20] MEDS ORDERED: hydrALAZINE HCL 25 MG TABLET PO PRN (18:15)
[2024-08-20] MEDS ORDERED: INSULIN REGULAR, HUMAN 1000 UNIT/10 ML VIAL SQ PRN ×2 (18:15)
[2024-08-20] MEDS ORDERED: CALMOSEPTINE 113 GM OINTMENT TP PRN (18:15)
[2024-08-20] MEDS ORDERED: BISACODYL 10 MG SUPP.RECT RC PRN (18:15)
[2024-08-20] MEDS ORDERED: SENNOSIDES 1 TABLET PO PRN (18:15)
[2024-08-20] MEDS ORDERED: diphenhydrAMINE 50 MG/1 ML VIAL IV PRN (18:15)
[2024-08-20] MEDS ORDERED: ACETAMINOPHEN 325 MG TABLET-SA PATIENTS-PAIN ONLY PO PRN (18:15)
[2024-08-20] MEDS ORDERED: DEXTROSE 50% 50 ML DISP.SYRIN IV PRN (18:15)
[2024-08-20] MEDS ORDERED: ACETAMINOPHEN 325 MG TABLET PO PRN (18:30)
[2024-08-20] MEDS: APIXABAN 2.5 MG TABLET PO SCH (18:55)
[2024-08-20] MEDS: FLUOCINONIDE 0.05% CREAM 30 GM TUBE TP SCH (18:58)
[2024-08-20] MEDS: TRIAMCINOLONE ACET 0.1% CREAM 15 GM TUBE TOP SCH (18:59)
[2024-08-20] MEDS ORDERED: MELATONIN 3 MG TABLET PO SCH (21:00)
[2024-08-20] MEDS: INSULIN GLARGINE,HUM 300 UNITS/3 ML CARTRIDGE SQ SCH (21:01)
[2024-08-20 21:28] VITALS: BP 147/65; TEMP 97.6; O2SAT 96
[2024-08-20 21:52] LABS: CREATINE KINASE, TOTAL 35 U/L (26-192)
[2024-08-21] MEDS ORDERED: diphenhydrAMINE 50 MG/1 ML VIAL IV PRN (06:45)
[2024-08-21 06:46] VITALS: BP 128/53; TEMP 97.4; O2SAT 96
[2024-08-21 08:00] VITALS: BP 139/67; TEMP 97.8; O2SAT 96
[2024-08-21] MEDS ORDERED: predniSONE 10 MG TABLET PO SCH (08:00)
[2024-08-21] MEDS: predniSONE 20 MG TABLET PO SCH (08:19)
[2024-08-21] MEDS: OXYBUTYNIN XL 5 MG TABSR PO SCH (08:20)
[2024-08-21] MEDS: FAMOTIDINE 20 MG TABLET PO SCH (08:23)
[2024-08-21] MEDS: ALLOPURINOL 300 MG TABLET PO SCH (08:23)
[2024-08-21] MEDS: LORATADINE 10 MG TABLET PO SCH (08:24)
[2024-08-21] MEDS: ASPIRIN EC 81 MG TABLET.DR PO SCH (08:26)
[2024-08-21 16:00] VITALS: BP 158/78; TEMP 97.4; O2SAT 96
[2024-08-21 20:08] VITALS: BP 139/64; TEMP 97.7; O2SAT 95
[2024-08-21] MEDS: GUAIFENESIN/DEXTROMETHORPHAN 5 ML UDC PO PRN (23:09)
[2024-08-22 06:35] VITALS: BP 145/65; TEMP 97.4; O2SAT 95
[2024-08-22 07:57] VITALS: BP 152/77; TEMP 97.6; O2SAT 97
[2024-08-22 15:59] VITALS: BP 163/79; TEMP 97.8; O2SAT 96
[2024-08-22 20:42] VITALS: BP 146/75; TEMP 97.5; O2SAT 95
[2024-08-23 06:30] VITALS: BP 145/69; TEMP 97.5; O2SAT 95
[2024-08-23 15:47] VITALS: BP 120/66; TEMP 97.7; O2SAT 95
[2024-08-23 20:35] VITALS: BP 133/67; TEMP 97.9; O2SAT 95
[2024-08-24 06:38] VITALS: BP 131/71; TEMP 97.7; O2SAT 94
[2024-08-24 07:29] VITALS: BP 145/82; TEMP 97.8; O2SAT 99
[2024-08-24] MEDS: predniSONE 20 MG TABLET PO SCH (08:22)
[2024-08-24 15:53] VITALS: BP 149/73; TEMP 97.4; O2SAT 97
[2024-08-24 20:36] VITALS: BP 155/69; TEMP 97.8; O2SAT 97
[2024-08-25 06:09] VITALS: BP 124/57; TEMP 97.2; O2SAT 97
[2024-08-25 08:08] VITALS: BP 139/82; TEMP 97.5; O2SAT 97
[2024-08-25] MEDS: FUROSEMIDE 20 MG TABLET PO SCH (11:59)
[2024-08-25 14:23] LABS: BASOPHILS # (AUTO) 0.1 K/UL (0.0-0.2); BASOPHILS % (AUTO) 0.5 % (0.0-2.0); DIFFERENTIAL COMMENT 0; EOSINOPHILS % (AUTO) 0.2 % (0.0-7.0); HEMATOCRIT 38.2 % (31.2-41.9); HEMOGLOBIN 12.6 g/dL (10.9-14.3); LYMPHOCYTES # (AUTO) 0.7 K/uL (0.8-4.8); LYMPHOCYTES % (AUTO) 7.1 % (20.5-51.5); MEAN CORPUSCULAR HEMOGLOBIN 29.8 uug (24.7-32.8); MEAN CORPUSCULAR HGB CONC 33 g/dL (32.3-35.6); MEAN CORPUSCULAR VOLUME 90.7 fL (75.5-95.3); MONOCYTES # (AUTO) 0.3 K/uL (0.1-1.30); MONOCYTES % (AUTO) 2.8 % (0.0-11.0); NEUTROPHILS # (AUTO) 8.6 K/uL (1.8-8.9); NEUTROPHILS % (AUTO) 89.4 % (38.5-71.5); PLATELET COUNT (AUTO) 212 K/uL (179-408); RED BLOOD CELL COUNT(AUTO) 4.22 MIL/uL (3.63-4.92); RED CELL DISTRIBUTION WIDTH 16.3 % (12.3-17.7); WHITE BLOOD COUNT (AUTO) 9.6 K/uL (3.8-11.8)
[2024-08-25 14:43] LABS: ALANINE AMINOTRANSFERASE 151 U/L (14-59); ALBUMIN 2.4 g/dL (3.4-5.0); ALKALINE PHOSPHATASE 192 U/L (50-136); ASPARTATE AMINOTRANSFERASE 95 U/L (15-37); CALCIUM 7.6 mg/dL (8.5-10.1); CARBON DIOXIDE 27 mmol/L (21-32); CHLORIDE 99 mmol/L (98-107); CREATININE 1.3 mg/dL (0.6-1.3); GLUCOSE 369 mg/dL (74-106); MAGNESIUM 1.9 mg/dL (1.8-2.4); PHOSPHOROUS 2.8 mg/dL (2.5-4.9); POTASSIUM 5.2 mmol/L (3.5-5.1); SODIUM SERUM 134 mmol/L (136-145); TOTAL PROTEIN, SERUM 5.4 g/dL (6.4-8.2); UREA NITROGEN, BLOOD 34 mg/dL (7-18)
[2024-08-25] MEDS: REMEDY ESSENTIAL ZINC PASTE 113 GM TP PRN (17:27)
[2024-08-25 20:46] VITALS: BP 145/75; TEMP 97.9; O2SAT 96
[2024-08-26 07:00] VITALS: BP 137/63; TEMP 97.7; O2SAT 97
[2024-08-26 08:07] LABS: BASOPHILS % (AUTO) 0.2 % (0.0-2.0); EOSINOPHILS # (AUTO) 0.1 K/uL (0.0-0.7); EOSINOPHILS % (AUTO) 0.6 % (0.0-7.0); HEMATOCRIT 37.9 % (31.2-41.9); HEMOGLOBIN 12.7 g/dL (10.9-14.3); LYMPHOCYTES # (AUTO) 1.8 K/uL (0.8-4.8); LYMPHOCYTES % (AUTO) 18.1 % (20.5-51.5); MEAN CORPUSCULAR HEMOGLOBIN 29.8 uug (24.7-32.8); MEAN CORPUSCULAR HGB CONC 34 g/dL (32.3-35.6); MEAN CORPUSCULAR VOLUME 89.1 fL (75.5-95.3); MONOCYTES # (AUTO) 0.9 K/uL (0.1-1.30); MONOCYTES % (AUTO) 9.2 % (0.0-11.0); NEUTROPHILS % (AUTO) 71.9 % (38.5-71.5); PLATELET COUNT (AUTO) 246 K/uL (179-408); RED BLOOD CELL COUNT(AUTO) 4.26 MIL/uL (3.63-4.92); RED CELL DISTRIBUTION WIDTH 16.1 % (12.3-17.7); WHITE BLOOD COUNT (AUTO) 9.8 K/uL (3.8-11.8)
[2024-08-26 08:20] LABS: ALANINE AMINOTRANSFERASE 175 U/L (14-59); ALBUMIN 2.5 g/dL (3.4-5.0); ALKALINE PHOSPHATASE 189 U/L (50-136); ASPARTATE AMINOTRANSFERASE 75 U/L (15-37); CALCIUM 8.1 mg/dL (8.5-10.1); CARBON DIOXIDE 29 mmol/L (21-32); CHLORIDE 102 mmol/L (98-107); GLUCOSE 65 mg/dL (74-106); POTASSIUM 4.4 mmol/L (3.5-5.1); SODIUM SERUM 138 mmol/L (136-145); TOTAL PROTEIN, SERUM 5.7 g/dL (6.4-8.2); UREA NITROGEN, BLOOD 38 mg/dL (7-18)
[2024-08-26 08:32] LABS: DIFFERENTIAL COMMENT 1
[2024-08-26 08:35] VITALS: TEMP 97.6
[2024-08-26] MEDS ORDERED: INSULIN GLARGINE,HUM 300 UNITS/3 ML CARTRIDGE SQ SCH (21:00)
[2024-08-27] MEDS ORDERED: predniSONE 50 MG TABLET PO SCH (08:00)
[2024-08-27] MEDS ORDERED: INSULIN GLARGINE,HUM 300 UNITS/3 ML CARTRIDGE SQ SCH (09:00)
[2024-08-30] MEDS ORDERED: predniSONE 20 MG TABLET PO SCH (08:00)
[2024-09-02] MEDS ORDERED: predniSONE 10 MG TABLET PO SCH (08:00)
[2024-09-05] MEDS ORDERED: predniSONE 20 MG TABLET PO SCH (08:00)
[2024-09-08] MEDS ORDERED: predniSONE 10 MG TABLET PO SCH (08:00)
[2024-09-11] MEDS ORDERED: predniSONE 5 MG TABLET PO SCH (08:00)
[2024-09-14] MEDS ORDERED: predniSONE 2.5 MG TABLET PO SCH (08:00)
== END 2024-08-26 15:00 | disposition home health service (06) | DRG 291 ==
PROVIDERS: ADMIT Physical Medicine & Rehabilitation Pain Medicine; ATTEND Physical Medicine & Rehabilitation Pain Medicine
DX: I11.0 Hypertensive heart disease with heart failure (principal); E43 Unspecified severe protein-calorie malnutrition; I50.31 Acute diastolic (congestive) heart failure; N17.0 Acute kidney failure with tubular necrosis; G92.8 Other toxic encephalopathy; N39.0 Urinary tract infection, site not specified; D68.59 Other primary thrombophilia; I48.20 Chronic atrial fibrillation, unspecified; L12.9 Pemphigoid, unspecified; E87.1 Hypo-osmolality and hyponatremia; L10.0 Pemphigus vulgaris; R53.1 Weakness; E11.65 Type 2 diabetes mellitus with hyperglycemia; E66.01 Morbid (severe) obesity due to excess calories; E78.5 Hyperlipidemia, unspecified; I48.91 Unspecified atrial fibrillation; L30.9 Dermatitis, unspecified; I48.0 Paroxysmal atrial fibrillation; H91.93 Unspecified hearing loss, bilateral; K21.9 Gastro-esophageal reflux disease without esophagitis; E86.1 Hypovolemia; E83.51 Hypocalcemia; E87.5 Hyperkalemia; M19.90 Unspecified osteoarthritis, unspecified site; Z68.38 Body mass index [BMI] 38.0-38.9, adult; E55.9 Vitamin D deficiency, unspecified; Z88.8 Allergy status to other drugs, medicaments and biological substances
CPT/HCPCS: 36415; 83735; 83921; 84100; 85025; 97535-GO-CO; J1815; J7512